=== PATIENT | male | born 1995 | race Caucasian/White ===

== ENCOUNTER 2019-12-25 05:30 | Day surgery (SDC) | payer OTHER ==
[~2019-12-25] VITALS: Ht 162.6 cm; Wt 56.7 kg
[2019-12-25] MEDS ORDERED: ROCURONIUM BROMIDE 10 MG/ML (ZEMURON) IV ONE (07:34)
[2019-12-25] MEDS ORDERED: MIDAZOLAM HCL 5 MG/5 ML VIAL IVP ONE (07:34)
[2019-12-25] MEDS ORDERED: fentaNYL CITRATE/PF 100 MCG/2 ML AMP IVP ONE (07:34)
[2019-12-25] MEDS ORDERED: PROPOFOL 200MG/ 20ML VIAL (DIPRIVAN) IV ONE (07:34)
[2019-12-25] MEDS ORDERED: BUPIVACAINE /EPINEPHRINE/PF 0.25% 30 ML VIAL INJ ONE (07:34)
[2019-12-25] MEDS ORDERED: BACITRACIN ZINC 15 GM TOPICAL OINTMENT TP ONE (07:34)
[2019-12-25] MEDS ORDERED: LR 1,000 ML IV.SOLN IV ONE (07:34)
[2019-12-25] MEDS ORDERED: SEVOFLURANE 15 MIN GAS INH ONE (07:34)
[2019-12-25] MEDS ORDERED: NS IRRIG SOLN 1000 ML IR ONE (07:34)
[2019-12-25] MEDS ORDERED: DEXAMETHASONE SOD PHOSPHATE 4 MG/ML VIAL IVP ONE (07:34)
[2019-12-25] MEDS ORDERED: LR 1,000 ML IV SCH (08:32)
[2019-12-25] MEDS ORDERED: ONDANSETRON HCL 4 MG/2 ML VIAL IVP PRN (08:45)
[2019-12-25] MEDS ORDERED: KETOROLAC TROMETHAMINE 30 MG VIAL IVP PRN (08:45)
[2019-12-25] MEDS ORDERED: ePHEDrine sulfate 50 MG/ML VIAL IVP PRN (08:45)
[2019-12-25] MEDS ORDERED: HYDROmorphone 1 MG INJ. 1 MG/ML AMPUL IVP PRN (08:45)
[2019-12-25] MEDS ORDERED: METOCLOPRAMIDE HCL 10 MG/2 ML VIAL IVP PRN (08:45)
[2019-12-25] MEDS ORDERED: HYDROmorphone 1 MG INJ. 1 MG/ML AMPUL ONE (08:58)
[2019-12-25 09:40] VITALS: BP_SYST 130
== END 2019-12-25 10:10 | disposition home or self-care (01) ==
LOC: SMU 05:30 → SDS 05:30
PROVIDERS: ATTEND Otolaryngology
DX: J35.01 Chronic tonsillitis (principal); K21.9 Gastro-esophageal reflux disease without esophagitis; R07.0 Pain in throat
CPT/HCPCS: 42826; 88304; J1170; J7120; J1100; J2250; J2704; J3010; J3490

== ENCOUNTER 2019-12-29 16:27 | Observation (INO) | payer OTHER ==
[~2019-12-29] VITALS: Ht 165.1 cm; Wt 59.0 kg
[2019-12-29 16:35] VITALS: BP_SYST 153
--- NOTE | 2019-12-29 17:00 | NUR ---
Patient to ER bed 02 to gown for evaluation. Side rails up.
--- NOTE | 2019-12-29 17:01 | NUR ---
Dr Flores at bedside examining patient
[2019-12-29] MEDS ORDERED: NACL 0.9% 1,000 ML IV ONE (17:15)
--- NOTE | 2019-12-29 17:15 | NUR ---
ER Dr. Meyer at bedside examining patient.
--- NOTE | 2019-12-29 17:15 | NUR ---
#18 gauge angiocatheter placed to L forearm. Use of asceptic technique. Tegaderm placed over site. Blood return noted. Blood for lab drawn from site. Flushed with 10 mL of normal saline. No evidence of infiltration noted. Patient tolerated well.
[2019-12-29 17:25] LABS: BASOPHILS % (AUTO) 0.4 % (0.0-2.0); EOSINOPHILS # (AUTO) 0.3 K/uL (0.0-0.4); EOSINOPHILS % (AUTO) 3.5 % (0.0-4.0); HEMOGLOBIN 13.2 g/dL (14.0-18.0); LYMPHOCYTES # (AUTO) 1.2 K/uL (1.0-5.5); LYMPHOCYTES % (AUTO) 11.9 % (20.5-51.5); MEAN CORPUSCULAR HEMOGLOBIN 30 pg (27-31); MEAN CORPUSCULAR HGB CONC 35 % (32-36); MEAN CORPUSCULAR VOLUME 87 fL (79.0-98.0); MONOCYTES # (AUTO) 0.7 K/uL (0.0-1.0); MONOCYTES % (AUTO) 7.4 % (1.7-9.3); NEUTROPHILS # (AUTO) 7.6 K/uL (1.8-7.7); NEUTROPHILS % (AUTO) 76.8 % (40.0-70.0); PLATELET COUNT (AUTO) 319 K/uL (130-430); RED BLOOD CELL COUNT(AUTO) 4.36 MIL/uL (4.2-6.2); RED CELL DISTRIBUTION WIDTH 12.7 % (9.0-15.0); WHITE BLOOD COUNT (AUTO) 9.9 K/uL (4.8-10.8)
--- NOTE | 2019-12-29 17:26 | NUR ---
RN Shift Engineer Dameon contacted to initiate procedures for surgical nursing team to mobilize.
--- NOTE | 2019-12-29 17:26 | NUR ---
Patient ANNEO x 4 ambulates to ER bed 02 with complaints of 9/10 throat pain and bleeding that began 1 hour ago. He reports eating mac and cheese prior to onset of incident. Recent history includes tonsillectomy on 12-29-2019. He also states he has a titanium implant to his mandible from a previous procedure. Skin is warm and intact. Even chest rise and fall with respirations. Will continue to monitor. 50 mL output of hematemesis with clots noted since arrival.
[2019-12-29 17:36] LABS: CALCIUM 8.8 mg/dL (8.4-11.0); CREATININE 0.75 mg/dL (0.55-1.30)
--- NOTE | 2019-12-29 17:38 | NUR ---
Medicated per MD orders. 100 mL NS IVF bolus infusing with no s/s of infiltration at this time. Will continue to monitor. Addendum: 12/29/19 at 1829 by [email or web address] CORRECTION: 1000 mL NS IVF bolus
[2019-12-29 17:42] LABS: ALBUMIN 3.7 g/dL (3.4-4.8); TOTAL BILIRUBIN 0.4 mg/dL (0.0-1.0)
[2019-12-29] MEDS ORDERED: MORPHINE 4 MG/ML INJ. SYRINGE IVP ONE (18:00)
[2019-12-29] MEDS ORDERED: ONDANSETRON HCL 4 MG/2 ML VIAL IVP ONE (18:00)
[2019-12-29] MEDS ORDERED: SEVOFLURANE 15 MIN GAS INH ONE (18:15)
[2019-12-29] MEDS ORDERED: LR 1,000 ML IV.SOLN IV ONE (18:15)
[2019-12-29] MEDS ORDERED: DEXAMETHASONE SOD PHOSPHATE 4 MG/ML VIAL IVP ONE (18:15)
[2019-12-29] MEDS ORDERED: PROPOFOL 200MG/ 20ML VIAL (DIPRIVAN) IV ONE (18:15)
[2019-12-29] MEDS ORDERED: SUCCINYLCHOLINE CHLORIDE 20 MG/ML(QUELICIN) IVP ONE (18:15)
[2019-12-29] MEDS ORDERED: NS IRRIG SOLN 1000 ML IR ONE (18:15)
[2019-12-29] MEDS ORDERED: MEPERIDINE HCL/PF 100 MG/ML AMP IM ONE (18:15)
--- NOTE | 2019-12-29 18:28 | NUR ---
Patient will be admitted to care of Dr. Meyer. Admitted to OR unit. Belongings list completed. Complete and up to date summary report printed. SBAR report to be given at bedside with opportunity for questions.
[2019-12-29 19:30] VITALS: BP_SYST 135
[2019-12-29] MEDS ORDERED: 0.45% NACL 1,000 ML IV SCH (19:34)
[2019-12-29] MEDS ORDERED: LR 1,000 ML IV SCH (19:37)
[2019-12-29] MEDS: HYDROmorphone 1 MG INJ. 1 MG/ML AMPUL IVP PRN ×2 (19:40→20:00)
[2019-12-29] MEDS ORDERED: ONDANSETRON HCL 4 MG/2 ML VIAL IVP PRN ×2 (19:45)
[2019-12-29] MEDS ORDERED: MEPERIDINE HCL/PF 25 MG/ML DISP.SYRIN IVP PRN (19:45)
[2019-12-29] MEDS ORDERED: HYDROcodone/ACETAMIN 5-325 MG TAB (NORCO/ VICODIN) PO PRN ×2 (19:45)
[2019-12-29] MEDS ORDERED: MORPHINE 2 MG/ML INJ. SYRINGE IVP PRN (19:45)
[2019-12-29] MEDS ORDERED: HYDROmorphone 1 MG INJ. 1 MG/ML AMPUL ONE (19:53)
--- NOTE | 2019-12-29 20:27 | NUR ---
RECEIVED PT ON UNIT FROM OR NURSE GHASSAN, PT IS STABLE, TALKING AND ABLE TO VERBALIZE NEEDS, NO BLEEDING NOTED FROM THROAT, VSS, NO REPORT OF NAUSEA, PAIN REPORTED TO BE TOLERABLE. POC DISCUSSED WITH PT, PT VERBALIZED UNDERSTANDING. SAFETY PRECAUTIONS ARE IN PLACE, CALL LIGHT IS WITH PT. WILL MONITOR. Addendum: 12/29/19 at 2100 by Lizzy Burleson RN PT IS AAOX4, LUNG SOUNDS ARE CLEAR TO AUSCULTATION BILATERALLY, NO S/S OF ACUTE DISTRESS, BREATHING IS UNLABORED, ABDOMEN IS NONDISTENDED AND NONTENDER, BOWEL SOUNDS ACTIVE IN ALL QUADRANTS. SKIN IS INTACT. PT HAS ALREADY VOIDED POST SURGERY PER REPORT FROM MERVIN FERRELL.
--- NOTE | 2019-12-29 21:10 | NUR ---
DISCHARGE PT IS STABLE, AAOX4, VITAL SIGNS ARE BP: 127/62, P: 69, TEMP: 97.4 DEGREES FAHRENHEIT, O2 SAT 98% RA, RR: 18. DISCHARGE INSTRUCTIONS EXPLAINED, PT VERBALIZED UNDERSTANDING. S/S OF WHEN TO RETURN TO HOSPITAL DISCUSSED. DISCHARGE PACKET SIGNED AND COPY GIVEN TO PT. IV D/C'D, CATHETER TIP INTACT WITH NO BLEEDING NOTED. PT HAS PRESCRIPTIONS WITH HIM. ALL BELONGINGS ARE WITH PT. PT TAKEN TO CAR VIA WHEELCHAIR, FAMILY IS DRIVING HIM HOME.
== END 2019-12-29 21:10 | disposition home or self-care (01) ==
LOC: SED 16:27 → SMU 19:32
PROVIDERS: ADMIT Otolaryngology; ATTEND Otolaryngology
DX: J95.830 Postprocedural hemorrhage of a respiratory system organ or structure following a respiratory system procedure (principal); Z79.899 Other long term (current) drug therapy
CPT/HCPCS: 36415; 42960; 80053; 85025; 86886; 86900; 86901; 96374; 96375; 99285; G0378; J0330; J1100; J1170; J2175; J2270; J2405; J2704; J7120; 96361